=== PATIENT | male | born 1990 | race Caucasian/White ===

== ENCOUNTER 2017-09-09 08:15 | Emergency (ER) | payer MEDICAID ==
[~2017-09-09] VITALS: Ht 162.6 cm; Wt 74.4 kg
[2017-09-09 08:24] VITALS: Ht 162.6 cm; Wt 74.4 kg
[2017-09-09 10:24] VITALS: BP 116/68
== END 2017-09-09 10:24 | disposition home or self-care (01) ==
LOC: ED 08:15
DX: R05 Cough (principal); R50.9 Fever, unspecified; R19.7 Diarrhea, unspecified